=== PATIENT | male | born 1990 | race African-American/Black ===

== ENCOUNTER 2021-12-23 17:32 | Emergency (ER) | payer SELFPAY ==
[~2021-12-23] VITALS: Ht 175.3 cm; Wt 106.6 kg
--- NOTE | 2021-12-23 19:10 | NUR ---
Received report from ROXIE Louise. Pt was A/O x4, denies any pain/discomfort. Noted to be calm and cooperativer at this moment. No plans or ideas to harm himself/others.
--- NOTE | 2021-12-23 19:50 | NUR ---
Patient eloped from facility. ER physician notified (Dr. Interiano).
== END 2021-12-23 20:02 | disposition left against medical advice (07) ==
LOC: ER 17:47
DX: Z53.21 Procedure and treatment not carried out due to patient leaving prior to being seen by health care provider (principal)

== ENCOUNTER 2022-06-08 12:23 | Emergency (ER) | payer MEDICAID ==
[~2022-06-08] VITALS: Ht 175.3 cm; Wt 102.1 kg
--- NOTE | 2022-06-08 12:45 | NUR ---
PT SEEN AND EVALUATED BY DR YEE
[2022-06-08 12:59] LABS: HEMATOCRIT 40.4 % (36.7-47.1); MEAN CORPUSCULAR HEMOGLOBIN 28.9 uug (23.8-33.4); MEAN CORPUSCULAR VOLUME 84.6 fL (73.0-96.2); PLATELET COUNT (AUTO) 258 K/uL (152-348)
[2022-06-08] MEDS ORDERED: IV NORMAL SALINE 1000 ML BAG IV ONE (13:00)
[2022-06-08 13:16] LABS: CREATININE 1.4 mg/dL (0.6-1.3); POTASSIUM 4.2 mmol/L (3.5-5.1)
[2022-06-08 13:33] LABS: BILIRUBIN,DIRECT 0.1 mg/dL (0.0-0.2); BILIRUBIN,TOTAL 0.5 mg/dL (0.2-1.0); TOTAL PROTEIN, SERUM 8.2 g/dL (6.4-8.2)
[2022-06-08] MEDS ORDERED: KETOROLAC TROMETHAMINE 30 MG INJ ONE (13:54)
[2022-06-08] MEDS ORDERED: KETOROLAC TROMETHAMINE 30 MG INJ IVP ONE (14:00)
[2022-06-08] MEDS ORDERED: TAMS-3 PO (14:09)
[2022-06-08] MEDS ORDERED: HYDR-4209 PO (14:09)
[2022-06-08] MEDS ORDERED: ONDA4TAB11 PO (14:09)
[2022-06-08] MEDS ORDERED: IBUP-1957 PO (14:09)
[2022-06-08 14:50] LABS: *BILIRUBIN,URIN NEGATIVE (NEGATIVE); *BLOOD, URINE 3+ (NEGATIVE); *CLARITY,URINE TURBID (CLEAR); *COLOR,URINE RED (YELLOW); *KETONES,URINE NEGATIVE (NEGATIVE); LEUKOCYTE ESTERASE ,URINE NEGATIVE (NEGATIVE); NITRITE, URINE NEGATIVE (NEGATIVE); PH,URINE 8.5 (5.0-8.0); UGLUCOSE NEGATIVE (NEGATIVE)
[2022-06-08 15:18] LABS: RBC,URINE TNTC /HPF (0-3); WBC,URINE 0-3 /HPF (0-3)
[2022-06-08 15:19] LABS: BACTERIA,URINE NONE SEEN /HPF (NONE SEEN); SQUAMOUS EPITHELIAL CELL,UR FEW /HPF (NONE SEEN)
--- NOTE | 2022-06-08 16:01 | NUR ---
[facility] DCD. DISCHARGE INSTRUCTIONS AND PRESCRIPTIONS EXPLAINED TO PATIENT.
[2022-06-08 16:03] VITALS: BP 120/80
== END 2022-06-08 16:04 | disposition home or self-care (01) ==
LOC: ER 12:23
DX: N13.2 Hydronephrosis with renal and ureteral calculous obstruction (principal); R03.0 Elevated blood-pressure reading, without diagnosis of hypertension; F41.9 Anxiety disorder, unspecified
CPT/HCPCS: 99284; 74176; 96374; 96361; 80076; 80048; 81001; 83690; 85025; 36415; J1885; A4663